=== PATIENT | male | born 1985 | race African-American/Black ===

== ENCOUNTER 2020-11-28 00:20 | Emergency (ER) | payer OTHER ==
[~2020-11-28] VITALS: Ht 170.2 cm; Wt 77.0 kg
[2020-11-28] MEDS ORDERED: KETOROLAC 30MG/ML VIAL IV STA (01:52)
[2020-11-28] MEDS ORDERED: SODIUM CHLORIDE 0.9% 1,000 ML IV ONE ×2 (02:00→05:15)
[2020-11-28] MEDS ORDERED: CEFTRIAXONE 1 G PREMIX 50 ML IV ONE (02:00)
[2020-11-28] MEDS ORDERED: AZITHROMYCIN 500 MG TABLET PO ONE (02:00)
[2020-11-28 02:27] LABS: HEMATOCRIT. 44.5 % (42.0-52.0); HEMOGLOBIN. 14.9 g/dL (14.0-18.0); MEAN CORPUSCULAR HEMOGLOBIN 28.1 pg (28.0-32.0); MEAN PLATELET VOLUME 7.6 fl (7.4-10.4); PLATELET 385 x1000/uL (130-400); RED CELL DISTRIBUTION WIDTH 13.4 % (11.6-14.6)
[2020-11-28 02:32] LABS: CHLORIDE 104 mEq/L (98-107)
[2020-11-28 03:13] LABS: PLATELET ESTIMATE NORMAL
[2020-11-28 04:25] LABS: CLARITY URINE CLEAR (CLEAR); COLOR URINE YELLOW (YELLOW); KETONES URINE NEGATIVE (NEGATIVE); LEUKOCYTE ESTERASE URINE TRACE (NEGATIVE); NITRITE URINE NEGATIVE (NEGATIVE); OCCULT BLOOD URINE NEGATIVE (NEGATIVE); PROTEIN URINE TRACE (NEGATIVE); SPECIFIC GRAVITY URINE 1.024 (1.005-1.030)
[2020-11-28 16:50] VITALS: BP 142/91
[2020-11-30 08:11] LABS: NEISSERIA GONORRHOEAE NAA Negative (Negative)
== END 2020-11-28 17:20 | disposition short-term general hospital (02) ==
LOC: ER 00:20
DX: A41.9 Sepsis, unspecified organism (principal); N45.1 Epididymitis; Z20.822 Contact with and (suspected) exposure to COVID-19; R00.0 Tachycardia, unspecified
CPT/HCPCS: 36415; 74176; 76870; 80053; 81003; 85025; 87426; 87491; 87591; 93005; 93976; 96365; 96366; 99291; J0696; J1885; J7030